=== PATIENT | male | born 2000 | race Two or more races ===

== ENCOUNTER 2021-10-11 16:56 | Emergency (ER) | payer SELFPAY ==
[~2021-10-11] VITALS: Ht 182.9 cm; Wt 86.6 kg
[2021-10-11 16:56] VITALS: BP 89/60
== END 2021-10-12 00:31 | disposition left against medical advice (07) ==
LOC: ER 16:56
DX: R07.89 Other chest pain (principal); R20.0 Anesthesia of skin; Z53.21 Procedure and treatment not carried out due to patient leaving prior to being seen by health care provider
CPT/HCPCS: 71045; 93005